=== PATIENT | male | born 1950 | race Caucasian/White ===

== ENCOUNTER 2016-12-16 05:31 | Inpatient (IN) | payer OTHER ==
[2016-12-16 05:43] VITALS: BMI 32.3
[2016-12-16] MEDS ORDERED: Nitroglycerin 2% Ointment Foilpak UD TOP ONE (05:53)
--- NOTE | 2016-12-16 05:59 | ED PDOC ---
HPI: SOB/CHF/COPD Time Seen by Provider: 12/16/16 05:35 Chief Complaint (Nursing): Shortness Of Breath History Per: Patient, Family History/Exam Limitations: no limitations Onset/Duration Of Symptoms: Hrs (8) Current Symptoms Are (Timing): Still Present Current Respiratory Medications: See Home Med List Severity: Moderate Associated Symptoms: Ankle/Leg Swelling. denies: Fever, Chills, Sweating, Chest Pain, Bloody Cough, Productive Cough, Heart Racing, Leg/Calf Pain, Dizziness, Light-headedness, Anxiety, Tingling In Hands Or Face, Musle Spasms In Hands Or Feet Additional History Per: Patient, Family Additional Complaint(s): 66 y/o male with history PR and stent placement, CAD, HTN, borderline DM, brain aneurysm, here accompanied by his son. Patient complains of cough and shortness of breath that began approximately [address]. No fever. No history of CHF or fluid overload. PMD and Cemetery Manager are through [facility]. Past Medical History Vital Signs: Last Vital Signs Temp 98.7 F 12/18/16 12:06 Pulse 85 12/18/16 12:06 Resp 18 12/18/16 12:06 BP 113/70 12/18/16 12:06 Pulse Ox 95 12/18/16 12:06 - Medical History PMH: CAD, Diabetes, HTN Other PMH: Brain Aneurysm - Surgical History Other surgeries: Cardiac Stenting, Aneruysm coil - Family History Family History: States: Unknown Family Hx - Social History Current smoker - smoking cessation education provided: No Alcohol: > 2 Drinks/Day (1 bottle of wine per day) - Home Medications Home Medications: Ambulatory Orders Medication Instructions Recorded Aspirin [Aspirin Chewable] 81 g PO DAILY 12/16/16 Clopidogrel [Plavix] 75 g PO DAILY 12/16/16 Fenofibrate [Tricor] 145 mg PO DAILY 12/16/16 Metoprolol Tartrate [Lopressor] 25 mg PO Q12 12/16/16 metFORMIN [glucOPHAGE] 500 mg PO BID 12/16/16 Atorvastatin [Lipitor] 20 mg PO HS #30 tab 12/18/16 Furosemide [Lasix] 20 mg PO DAILY #30 tab 12/18/16 Lisinopril [Zestril] 2.5 mg PO DAILY #30 tab 12/18/16 - Allergies Allergies/Adverse Reactions: Allergies Allergy/AdvReac Type Severity Reaction Status Date / Time No Known Allergies Allergy Verified 12/16/16 05:43 Review of Systems ROS Statement: Except As Marked, All Systems Reviewed And Found Negative Respiratory: Positive for: Cough, Shortness of Breath Physical Exam - Reviewed Nursing Documentation Reviewed: Yes Vital Signs Reviewed: Yes - Physical Exam Appears: Positive for: Non-toxic, No Acute Distress, Uncomfortable Head Exam: Positive for: ATRAUMATIC, NORMAL INSPECTION, NORMOCEPHALIC Skin: Positive for: Normal Color, Warm, DRY Eye Exam: Positive for: EOMI, Normal appearance, PERRL ENT: Positive for: Normal ENT Inspection Neck: Positive for: Normal, Painless ROM Cardiovascular/Chest: Positive for: Regular Rate, Rhythm Respiratory: Positive for: Accessory Muscle Use, Crackles (throughout ), Respiratory Distress, Other (Tachypnea). Negative for: Rales, Rhonchi, Stridor , Wheezing Gastrointestinal/Abdominal: Positive for: Normal Exam, Bowel Sounds, Soft Back: Positive for: Normal Inspection Extremity: Positive for: Normal ROM, Capillary Refill, Swelling (2+ bilateral lower extremity, pitting). Negative for: Deformity Neurologic/Psych: Positive for: Alert, Oriented - Laboratory Results Result Diagrams: 12/17/16 06:20 12/17/16 06:20 - ECG ECG Rhythm: Positive for: Normal QRS, Normal ST Segment, Sinus Tachycardia (103) . Negative for: ST/T Changes O2 Sat by Pulse Oximetry: 93 Medical Decision Making Medical Decision Making: ImpressionL r/o CHF Plan: - Labs - CXR - EKG - Lasix and Nitro SL Scribe Attestation: Documented by Stella Mei acting as a scribe for Radha Najera MD. Scribe Attestation: All medical record entries made by the Scribe were at my direction and personally dictated by me. I have reviewed the chart and agree that the record accurately reflects my personal performance of the history, physical exam, medical decision making, and the department course for this patient. I have also personally directed, reviewed, and agree with the discharge instructions and disposition. Disposition - Clinical Impression Clinical Impression: CHF (congestive heart failure) - Patient ED Disposition Is Patient to be Admitted: Transfer of Care - Disposition Disposition: Transfer of Care Disposition Time: 07:00 Condition: STABLE Patient Signed Over To: Oneil Zamarripa
[2016-12-16 06:07] LABS: BASO # 0.1 K/uL (0.0-0.2); BASO % 0.5 % (0.0-2.0); EOS # 0.5 K/uL (0.0-0.7); EOS % 3.7 % (0.0-4.0); HEMATOCRIT 38.8 % (35.0-51.0); LYMPH # 2.9 K/uL (1.0-4.3); LYMPH % 21.4 % (20.0-40.0); MEAN CELL VOLUME 89.9 fl (80.0-94.0); MEAN CORPUSCULAR HEMOGLOBIN 28.7 pg (27.0-31.0); MEAN CORPUSCULAR HGB CONC 31.9 g/dL (33.0-37.0); MEAN PLATELET VOLUME 7.9 fl (7.2-11.7); MONO # 1.6 K/uL (0.0-0.8); MONO % 11.8 % (0.0-10.0); NEUT # 8.6 K/uL (1.8-7.0); NEUT % 62.6 % (50.0-75.0); RED CELL DISTRIBUTION WIDTH 13.5 % (11.5-14.5); WHITE BLOOD COUNT 13.7 K/uL (4.8-10.8)
[2016-12-16 06:17] LABS: ALB/GLOB RATIO 1.3 (1.0-2.1); ALKALINE PHOSPHATASE 48 U/L (38-126); ALT/SGPT 41 U/L (21-72); AST/SGOT 36 U/L (17-59); BILIRUBIN,TOTAL 1.1 mg/dl (0.2-1.3); BLOOD UREA NITROGEN 14 mg/dl (9-20); CALCIUM 9.4 mg/dL (8.4-10.2); CARBON DIOXIDE 22 mmol/L (22-30); CHLORIDE 106 mmol/L (98-107); GFR AFRICAN-AMERICAN > 60; GLUCOSE,RANDOM 123 mg/dL (75-110); POTASSIUM 4.3 MMOL/L (3.6-5.0); SODIUM 139 mmol/l (132-148); TOTAL PROTEIN 7.5 G/DL (6.3-8.2)
--- NOTE | 2016-12-16 07:09 | ED PDOC ---
- Laboratory Results Result Diagrams: 12/16/16 06:00 12/16/16 06:00 - ECG O2 Sat by Pulse Oximetry: 96 (RA) Pulse Ox Interpretation: Normal Medical Decision Making Medical Decision Makin:08 Patient signed out to me from Dr. Najera. Labs pending. 08:00 Chest x-ray reviewed by me. 09:[address] Maico Samuels who agrees to admit patient. Disposition Counseled Patient/Family Regarding: Studies Performed - Clinical Impression Clinical Impression: CHF (congestive heart failure) - POA Present On Arrival: None - Disposition Disposition: Hospitalized as Observation Patient Disposition Time: 09:25 Condition: FAIR
[2016-12-16] MEDS ORDERED: Albuterol-Ipratrop 3 mg / 0.5 (3 ml) UD INH STA (07:50)
[2016-12-16] MEDS ORDERED: Albuterol-Ipratrop 3 mg / 0.5 (3 ml) UD ONE (08:32)
--- NOTE | 2016-12-16 10:18 | CP.PCM.HP ---
History of Present Illness - History of Present Illness History of Present Illness: 66 yo male with history of CAD, HTN, DM2, brain aneurysm with recent coronary stent placement a month ago came in complaining of SOB and coughing since yesterday. Patient unable to lie in bed because of coughing and would rather sit down on a chair. Cough was non-productive. Noted also were leg swelling. He denied chest pain, fever or chills. In the ER, patient was given IV Lasix and Duoneb and had some relief from SOB. However coughing remained. Present on Admission - Present on Admission Any Indicators Present on Admission: No History of DVT/PE: No History of Uncontrolled Diabetes: No Urinary Catheter: No Decubitus Ulcer Present: No Review of Systems - Review of Systems All systems: reviewed and no additional remarkable complaints except (aside from those mentioned above, 12 point system review were negative by me) Past Patient History - Tetanus Immunizations Tetanus Immunization: Unknown - Past Medical History & Family History Past Medical History?: Yes Past Family History: Reviewed and not pertinent - Past Social History Smoking Status: Former Smoker (drinks 1 bottle of wine a day) Alcohol: > 2 Drinks/Day (1 bottle of wine per day) Drugs: Denies Home Situation {Lives}: With Family - CARDIAC Hx Cardiac Disorders: Yes Hx Hypercholesterolemia: Yes Hx Hypertension: Yes Hx Peripheral Edema: Yes - PULMONARY Hx Respiratory Disorders: Yes - NEUROLOGICAL Hx Neurological Disorder: Yes Other/Comment: cerebral aneurysm, 2 and 3 yrs ago - HEENT Hx HEENT Problems: No - RENAL Hx Chronic Kidney Disease: No - ENDOCRINE/METABOLIC Hx Diabetes Mellitus Type 2: Yes (borderline diabetic) - HEMATOLOGICAL/ONCOLOGICAL Hx Blood Disorders: No - INTEGUMENTARY Hx Dermatological Problems: No - MUSCULOSKELETAL/RHEUMATOLOGICAL Hx Musculoskeletal Disorders: No - GASTROINTESTINAL Hx Gastrointestinal Disorders: No - GENITOURINARY/GYNECOLOGICAL Hx Genitourinary Disorders: No - PSYCHIATRIC Hx Psychophysiologic Disorder: No Hx Substance Use: No - SURGICAL HISTORY Hx Surgeries: Yes Hx Coronary Stent: Yes Other/Comment: cerebral aneurysm repair, 2 and 3 yrs ago - ANESTHESIA Hx Anesthesia: Yes Hx Anesthesia Reactions: No Meds Allergies/Adverse Reactions: Allergies Allergy/AdvReac Type Severity Reaction Status Date / Time No Known Allergies Allergy Verified 12/16/16 05:43 Physical Exam - Constitutional Appears: No Acute Distress - Head Exam Head Exam: ATRAUMATIC - Eye Exam Eye Exam: absent: Scleral icterus - ENT Exam ENT Exam: Mucous Membranes Moist - Neck Exam Neck exam: Negative for: Meningismus - Respiratory Exam Respiratory Exam: absent: Rhonchi, Wheezes, Respiratory Distress - Cardiovascular Exam Cardiovascular Exam: REGULAR RHYTHM, +S1, +S2 - GI/Abdominal Exam GI & Abdominal Exam: Soft. absent: Tenderness - Rectal Exam Rectal Exam: Deferred - Extremities Exam Extremities exam: Positive for: pedal edema (2+ pedal edema) - Back Exam Back exam: NORMAL INSPECTION - Neurological Exam Neurological exam: Alert, Oriented x3 - Psychiatric Exam Psychiatric exam: Normal Affect - Skin Skin Exam: Dry, Intact Results - Vital Signs Recent Vital Signs: Last Vital Signs Temp 97.6 F 12/16/16 09:53 Pulse 90 12/16/16 09:53 Resp 19 12/16/16 09:53 BP 140/76 12/16/16 09:53 Pulse Ox 98 12/16/16 09:49 - Labs Result Diagrams: 12/16/16 06:00 12/16/16 06:00 Assessment & Plan (1) CHF (congestive heart failure) Status: Suspected Comment: place on observation in telemetry. serial Troponin and EKG. ECHO. cardiology consult with Dr Paez. Lasix 40mg PO daily (2) CAD (coronary artery disease) Status: Chronic Comment: continue ASA, Plavix, Metoprolol and statin. had coronary stent a month ago (1st one 5yrs ago) (3) HTN (hypertension) Status: Chronic Comment: BP stable. continue Metoprolol (4) DM2 (diabetes mellitus, type 2) Status: Chronic Comment: BS relatively controlled. continue Metformin 500mg PO BID. HgA1C, BMP in am (5) DVT prophylaxis Status: Acute Comment: Lovenox 40mg SC daily
--- NOTE | 2016-12-16 10:49 | RAD ---
HISTORY: sob COMPARISON: No prior. FINDINGS: LUNGS: Minor bibasilar atelectasis. PLEURA: No significant pleural effusion identified, no pneumothorax apparent. CARDIOVASCULAR: Heart size is upper limits of normal -borderline enlarged. OSSEOUS STRUCTURES: Mild multilevel degenerative spondylosis of the thoracic spine VISUALIZED UPPER ABDOMEN: Normal. OTHER FINDINGS: None. IMPRESSION: Minor bibasilar atelectasis.
[2016-12-16] MEDS: Albuterol-Ipratrop 3 mg / 0.5 (3 ml) UD INH PRN ×2 (15:07→23:49)
[2016-12-16] MEDS: guaiFENesin DM 200 mg-20 mg/10 ml UD PO PRN (20:28)
[2016-12-17] MEDS: guaiFENesin DM 200 mg-20 mg/10 ml UD PO PRN ×2 (04:07→20:17)
[2016-12-17 07:04] LABS: BLOOD UREA NITROGEN 13 mg/dl (9-20); CALCIUM 9.4 mg/dL (8.4-10.2); CARBON DIOXIDE 24 mmol/L (22-30); CHLORIDE 102 mmol/L (98-107); GFR AFRICAN-AMERICAN > 60; GLUCOSE,RANDOM 113 mg/dL (75-110); POTASSIUM 4.1 MMOL/L (3.6-5.0); SODIUM 137 mmol/l (132-148)
[2016-12-17 07:44] LABS: BASO % 0.3 % (0.0-2.0); EOS # 0.4 K/uL (0.0-0.7); EOS % 3.2 % (0.0-4.0); HEMATOCRIT 37.5 % (35.0-51.0); LYMPH # 2.4 K/uL (1.0-4.3); LYMPH % 19.8 % (20.0-40.0); MEAN CELL VOLUME 89.5 fl (80.0-94.0); MEAN CORPUSCULAR HEMOGLOBIN 29.1 pg (27.0-31.0); MEAN CORPUSCULAR HGB CONC 32.4 g/dL (33.0-37.0); MEAN PLATELET VOLUME 8.7 fl (7.2-11.7); MONO # 1.2 K/uL (0.0-0.8); MONO % 10.1 % (0.0-10.0); NEUT # 8.1 K/uL (1.8-7.0); NEUT % 66.6 % (50.0-75.0); NRBC % 0.2 % (0.0-0.0); RED CELL DISTRIBUTION WIDTH 13.5 % (11.5-14.5); WHITE BLOOD COUNT 12.2 K/uL (4.8-10.8)
[2016-12-17] MEDS: Albuterol-Ipratrop 3 mg / 0.5 (3 ml) UD INH PRN ×3 (08:01→22:24)
[2016-12-17] MEDS: Enoxaparin 40 mg Syringe SC SCH (08:59)
--- NOTE | 2016-12-17 10:07 | CARD ---
APPROVED REPORT EKG Measurement Heart [id number] <Conclusion> Sinus tachycardia Indeterminate axis Pulmonary disease pattern Abnormal ECG
--- NOTE | 2016-12-17 11:08 | CP.PCM.CON ---
History of Present Illness - History of Present Illness History of Present Illness: this 66-year-old man was brought to the emergency room upon development of shortness of breath and coughing spells. There was a vague sense of chest discomfort quite unconnected to any physical activity. This did not radiate down his arm or into his jaw and was not accompanied by any perspiration nausea or vomiting. He has a history of having required a coronary stent approximately 4 years back and again one month back. These interventions were preceded by chest pain which was typical off coronary artery disease. He is an ex-smoker who has a history of diabetes mellitus for which he takes metformin. He also has hypertriglyceridemia and hypertension. He has been on aspirin and Plavix since his coronary stenting which she has taken faithfully. He is also on prolonged. There is no family history of vascular disease. He has no symptoms of congestive cardiac failure.[place] Physical examination shows a middle aged man who is comfortable at bedrest. Telemetry shows a steady sinus rhythm. His blood pressure was 140/70 mmHg. And his heart rate was 64 bpm and regular. His pedal pulses were well felt. His jugular venous pressure was not elevated. There was no edema over his lower extremity. The apex was not palpable. First and second heart sound are normal. There were no rales and there was no gallop rhythm. His electrocardiogram at admission shows sinus rhythm with nonspecific ST changes. There were no changes of acute myocardial ischemia. His electrocardiogram this morning shows QS complexes in V1 and V2 probably related to chest lead placement, there were no ST-T changes of myocardial ischemia. His troponin levels were consistently normal on 3 separate occasions 8 hours apart. The rest of his labs were noted. The patient reports that last night he developed coughing spells and shortness of breath which required him to sit up in a chair and he got relief. IMPRESSION: coronary artery disease with coronary stenting 2 the last one being one month back. Diabetes mellitus, hypertension and dyslipidemia. His electrocardiograms and troponin levels do not indicate recent myocyte injury. But, an episode of orthopnea last night, strongly suggests unstable left ventricular function. During this examination there was no evidence of volume overload. Today's electrocardiogram does not show ongoing ST-T abnormalities indicative of ongoing myocardial ischemia. I have attempted to contact his manager medical writing who will be available tomorrow morning. I intend to observe the patient in the hospital today before letting him go so he can see his manager medical writing tomorrow. Past Patient History - Tetanus Immunizations Tetanus Immunization: Unknown - Past Medical History & Family History Past Medical History?: Yes Past Family History: Reviewed and not pertinent - Past Social History Smoking Status: Former Smoker (drinks 1 bottle of wine a day) Alcohol: > 2 Drinks/Day (1 bottle of wine per day) Drugs: Denies Home Situation {Lives}: With Family - CARDIAC Hx Cardiac Disorders: Yes Hx Hypercholesterolemia: Yes Hx Hypertension: Yes Hx Peripheral Edema: Yes - PULMONARY Hx Respiratory Disorders: Yes - NEUROLOGICAL Hx Neurological Disorder: Yes Other/Comment: cerebral aneurysm, 2 and 3 yrs ago - HEENT Hx HEENT Problems: No - RENAL Hx Chronic Kidney Disease: No - ENDOCRINE/METABOLIC Hx Diabetes Mellitus Type 2: Yes (borderline diabetic) - HEMATOLOGICAL/ONCOLOGICAL Hx Blood Disorders: No - INTEGUMENTARY Hx Dermatological Problems: No - MUSCULOSKELETAL/RHEUMATOLOGICAL Hx Musculoskeletal Disorders: No - GASTROINTESTINAL Hx Gastrointestinal Disorders: No - GENITOURINARY/GYNECOLOGICAL Hx Genitourinary Disorders: No - PSYCHIATRIC Hx Psychophysiologic Disorder: No Hx Substance Use: No - SURGICAL HISTORY Hx Surgeries: Yes Hx Coronary Stent: Yes Other/Comment: cerebral aneurysm repair, 2 and 3 yrs ago - ANESTHESIA Hx Anesthesia: Yes Hx Anesthesia Reactions: No Meds Allergies/Adverse Reactions: Allergies Allergy/AdvReac Type Severity Reaction Status Date / Time No Known Allergies Allergy Verified 12/16/16 05:43 - Medications Medications: Current Medications Albuterol/Ipratropium (Duoneb 3 Mg/0.5 Mg (3 Ml) Ud) 3 ml INH RQ4 PRN PRN Reason: Shortness of Breath Last Admin: 12/17/16 08:01 Dose: 3 ml Aspirin (Aspirin Chewable) 81 mg PO DAILY [facility] Last Admin: 12/17/16 08:58 Dose: 81 mg Atorvastatin Calcium (Lipitor) 20 mg PO HS [facility] Last Admin: 12/16/16 21:26 Dose: 20 mg Clopidogrel Bisulfate (Plavix) 75 mg PO DAILY [facility] Last Admin: 12/17/16 08:58 Dose: 75 mg Enoxaparin Sodium (Lovenox) 40 mg SC DAILY [facility] PRN Reason: Protocol Last Admin: 12/17/16 08:59 Dose: 40 mg Fenofibrate (Tricor) 145 mg PO DAILY [facility] Last Admin: 09/04/17 08:58 Dose: 145 mg Furosemide (Lasix) 40 mg IV DAILY [facility] Last Admin: 12/17/16 10:49 Dose: 40 mg Guaifenesin/Dextromethorphan (Robitussin Dm) 10 ml PO Q4 PRN PRN Reason: Cough Last Admin: 12/17/16 04:07 Dose: 10 ml Lisinopril (Zestril) 2.5 mg PO DAILY [facility] Metformin HCl (Glucophage) 500 mg PO BID [facility] Last Admin: 12/17/16 08:58 Dose: 500 mg Metoprolol Tartrate (Lopressor) 25 mg PO Q12 [facility] Last Admin: 12/17/16 08:58 Dose: 25 mg Results - Vital Signs Recent Vital Signs: Last Vital Signs Temp 98.8 F 12/17/16 08:00 Pulse 90 12/17/16 08:58 Resp 18 12/17/16 08:00 BP 153/66 H 12/17/16 10:49 Pulse Ox 97 12/17/16 08:00 - Labs Result Diagrams: 12/17/16 06:20 12/17/16 06:20 Labs: Laboratory Results - last 24 hr 12/16/16 12/16/16 12/17/16 14:30 22:33 06:20 WBC 12.2 H RBC 4.19 L Hgb 12.2 Hct 37.5 MCV 89.5 MCH 29.1 MCHC 32.4 L RDW 13.5 Plt Count 241 MPV 8.7 Neut % (Auto) 66.6 Lymph % (Auto) 19.8 L [place] % (Auto) 10.1 H Eos % (Auto) 3.2 Baso % (Auto) 0.3 Neut # 8.1 H Lymph # 2.4 [place] # 1.2 H Eos # 0.4 Baso # 0.0 Sodium Potassium Chloride Carbon Dioxide Anion Gap BUN Creatinine Est GFR ( Amer) Est GFR (Non-Af Amer) Random Glucose Calcium Troponin I < 0.0120 < 0.0120 12/17/16 06:20 WBC RBC Hgb Hct MCV MCH MCHC RDW Plt Count MPV Neut % (Auto) Lymph % (Auto) [place] % (Auto) Eos % (Auto) Baso % (Auto) Neut # Lymph # [place] # Eos # Baso # Sodium 137 Potassium 4.1 Chloride 102 Carbon Dioxide 24 Anion Gap 15 BUN 13 Creatinine 1.0 Est GFR ( Amer) > 60 Est GFR (Non-Af Amer) > 60 Random Glucose 113 H Calcium 9.4 Troponin I
--- NOTE | 2016-12-17 15:25 | CP.PCM.PN ---
Subjective - Date & Time of Evaluation Date of Evaluation: 12/17/16 Time of Evaluation: 14:00 - Subjective Subjective: Pt seen and examined. Admitted feeling SOB and coughing when lying in bed. Unable to sleep last night since he had to stay in the chair. Objective - Vital Signs/Intake and Output Vital Signs (last 24 hours): Temp Pulse Resp BP Pulse Ox 98.4 F 91 H 20 124/75 97 12/17/16 12:45 12/17/16 12:45 12/17/16 12:45 12/17/16 12:45 12/17/16 12:45 Intake and Output: 12/17/16 12/17/16 06:59 18:59 Intake Total 300 Balance 300 - Medications Medications: Current Medications Albuterol/Ipratropium (Duoneb 3 Mg/0.5 Mg (3 Ml) Ud) 3 ml INH RQ4 PRN PRN Reason: Shortness of Breath Last Admin: 12/17/16 08:01 Dose: 3 ml Aspirin (Aspirin Chewable) 81 mg PO DAILY [facility] Last Admin: 12/17/16 08:58 Dose: 81 mg Atorvastatin Calcium (Lipitor) 20 mg PO HS [facility] Last Admin: 12/16/16 21:26 Dose: 20 mg Clopidogrel Bisulfate (Plavix) 75 mg PO DAILY [facility] Last Admin: 12/17/16 08:58 Dose: 75 mg Enoxaparin Sodium (Lovenox) 40 mg SC DAILY [facility] PRN Reason: Protocol Last Admin: 12/17/16 08:59 Dose: 40 mg Fenofibrate (Tricor) 145 mg PO DAILY [facility] Last Admin: 12/17/16 08:58 Dose: 145 mg Furosemide (Lasix) 40 mg IV DAILY [facility] Last Admin: 12/17/16 10:49 Dose: 40 mg Guaifenesin/Dextromethorphan (Robitussin Dm) 10 ml PO Q4 PRN PRN Reason: Cough Last Admin: 12/17/16 04:07 Dose: 10 ml Lisinopril (Zestril) 2.5 mg PO DAILY [facility] Metformin HCl (Glucophage) 500 mg PO BID [facility] Last Admin: 12/17/16 08:58 Dose: 500 mg Metoprolol Tartrate (Lopressor) 25 mg PO Q12 [facility] Last Admin: 12/17/16 08:58 Dose: 25 mg - Labs Labs: 12/17/16 06:20 12/17/16 06:20 - Constitutional Appears: No Acute Distress - Head Exam Head Exam: ATRAUMATIC - Eye Exam Eye Exam: absent: Scleral icterus - ENT Exam ENT Exam: Mucous Membranes Moist - Neck Exam Neck Exam: absent: Meningismus - Respiratory Exam Respiratory Exam: absent: Rhonchi, Wheezes, Respiratory Distress - Cardiovascular Exam Cardiovascular Exam: REGULAR RHYTHM, +S1, +S2 - GI/Abdominal Exam GI & Abdominal Exam: Soft. absent: Tenderness - Rectal Exam Rectal Exam: Deferred - Extremities Exam Extremities Exam: Pedal Edema (both legs less edematous than yesterday) - Neurological Exam Neurological Exam: Alert, Oriented x3 - Psychiatric Exam Psychiatric exam: Normal Affect - Skin Skin Exam: Dry, Intact Assessment and Plan (1) CHF (congestive heart failure) Status: Suspected (2) CAD (coronary artery disease) Status: Chronic (3) HTN (hypertension) Status: Chronic (4) DM2 (diabetes mellitus, type 2) Status: Chronic (5) DVT prophylaxis Status: Acute - Assessment and Plan (Free Text) Assessment: 66 yo male with history of CAD, HTN, DM2, brain aneurysm with recent coronary stent placement a month ago came in because of SOB and coughing since yesterday. (1) CHF (congestive heart failure) serial Troponins and EKGs were negative for ischemic changes CXray: borderline cardiomegaly with bibasilar atelectasis ECHO pending cardiology consult with Dr Paez. continue Lasix and Lisinopril (2) CAD (coronary artery disease) continue ASA, Plavix, Metoprolol and statin. (3) HTN (hypertension) BP stable. continue Metoprolol, Lisinopril and Lasix (4) DM2 (diabetes mellitus, type 2) BS controlled. HgA1C: 6.3 continue Metformin 500mg PO BID (5) DVT prophylaxis Lovenox 40mg SC daily
[2016-12-18] MEDS: guaiFENesin DM 200 mg-20 mg/10 ml UD PO PRN ×3 (00:18→08:54)
[2016-12-18 08:04] VITALS: RESP 18
[2016-12-18] MEDS: Enoxaparin 40 mg Syringe SC SCH (08:54)
[2016-12-18 11:29] VITALS: PULSE 85
[2016-12-18 12:06] VITALS: BP 113/70; TEMP 98.7
--- NOTE | 2016-12-18 12:08 | CP.PCM.PN ---
Subjective - Date & Time of Evaluation Date of Evaluation: 12/18/16 Time of Evaluation: 10:00 - Subjective Subjective: Was comfortable overnight Telemetry shows stable sinus rhythm at physiologic rates Vital signs stable Echo shows normal LV wall motion pattern with preserved LV syst function Discussed his case with his doctors at [facility] Pt has an appt to see them on 19 August go home on present Rx Objective - Vital Signs/Intake and Output Vital Signs (last 24 hours): Temp Pulse Resp BP Pulse Ox 98.4 F 85 18 120/74 95 12/18/16 09:00 12/18/16 09:00 12/18/16 09:00 12/18/16 09:00 12/18/16 09:00 Intake and Output: 12/18/16 12/18/16 06:59 18:59 Intake Total 400 Balance 400 - Medications Medications: Current Medications Albuterol/Ipratropium (Duoneb 3 Mg/0.5 Mg (3 Ml) Ud) 3 ml INH RQ4 PRN PRN Reason: Shortness of Breath Last Admin: 12/17/16 22:24 Dose: 3 ml Aspirin (Aspirin Chewable) 81 mg PO DAILY [facility] Last Admin: 12/18/16 08:51 Dose: 81 mg Atorvastatin Calcium (Lipitor) 20 mg PO HS [facility] Last Admin: 12/17/16 21:11 Dose: 20 mg Clopidogrel Bisulfate (Plavix) 75 mg PO DAILY [facility] Last Admin: 12/18/16 08:54 Dose: 75 mg Enoxaparin Sodium (Lovenox) 40 mg SC DAILY [facility] PRN Reason: Protocol Last Admin: 12/18/16 08:54 Dose: 40 mg Fenofibrate (Tricor) 145 mg PO DAILY [facility] Last Admin: 12/18/16 08:54 Dose: 145 mg Furosemide (Lasix) 40 mg IV DAILY [facility] Last Admin: 12/18/16 08:52 Dose: 40 mg Guaifenesin/Dextromethorphan (Robitussin Dm) 10 ml PO Q4 PRN PRN Reason: Cough Last Admin: 12/18/16 08:54 Dose: 10 ml Lisinopril (Zestril) 2.5 mg PO DAILY [facility] Last Admin: 12/18/16 08:54 Dose: 2.5 mg Metformin HCl (Glucophage) 500 mg PO BID [facility] Last Admin: 12/18/16 08:51 Dose: 500 mg Metoprolol Tartrate (Lopressor) 25 mg PO Q12 [facility] Last Admin: 12/18/16 08:53 Dose: 25 mg
--- NOTE | 2016-12-18 12:26 | CP.PCM.DIS ---
Provider - Provider Date of Admission: 12/17/16 19:37 Attending physician: Maico Samuels MD Primary care physician: Dr.Hason Ramírez Consults: cardiology consult Time Spent in preparation of Discharge (in minutes): 20 Hospital Course - Lab Results Lab Results: Most Recent Lab Values WBC 12.2 K/uL (4.8-10.8) H 12/17/16 06:20 RBC 4.19 Mil/uL (4.40-5.90) L 12/17/16 06:20 Hgb 12.2 g/dL (12.0-18.0) 12/17/16 06:20 Hct 37.5 % (35.0-51.0) 12/17/16 06:20 MCV 89.5 fl (80.0-94.0) 12/17/16 06:20 MCH 29.1 pg (27.0-31.0) 12/17/16 06:20 MCHC 32.4 g/dL (33.0-37.0) L 12/17/16 06:20 RDW 13.5 % (11.5-14.5) 12/17/16 06:20 Plt Count 241 K/uL (130-400) 12/17/16 06:20 MPV 8.7 fl (7.2-11.7) 12/17/16 06:20 Neut % (Auto) 66.6 % (50.0-75.0) 12/17/16 06:20 Lymph % (Auto) 19.8 % (20.0-40.0) L 12/17/16 06:20 [place] % (Auto) 10.1 % (0.0-10.0) H 12/17/16 06:20 Eos % (Auto) 3.2 % (0.0-4.0) 12/17/16 06:20 Baso % (Auto) 0.3 % (0.0-2.0) 12/17/16 06:20 Neut # 8.1 K/uL (1.8-7.0) H 12/17/16 06:20 Lymph # 2.4 K/uL (1.0-4.3) 12/17/16 06:20 [place] # 1.2 K/uL (0.0-0.8) H 12/17/16 06:20 Eos # 0.4 K/uL (0.0-0.7) 12/17/16 06:20 Baso # 0.0 K/uL (0.0-0.2) 12/17/16 06:20 Sodium 137 mmol/l (132-148) 12/17/16 06:20 Potassium 4.1 MMOL/L (3.6-5.0) 12/17/16 06:20 Chloride 102 mmol/L (98-107) 12/17/16 06:20 Carbon Dioxide 24 mmol/L (22-30) 12/17/16 06:20 Anion Gap 15 (10-20) 12/17/16 06:20 BUN 13 mg/dl (9-20) 12/17/16 06:20 Creatinine 1.0 mg/dL (0.8-1.5) 12/17/16 06:20 Est GFR ( Amer) > 60 12/17/16 06:20 Est GFR (Non-Af Amer) > 60 12/17/16 06:20 POC Glucose (mg/dL) 96 mg/dL (65-110) 12/16/16 06:06 Random Glucose 113 mg/dL (75-110) H 12/17/16 06:20 Hemoglobin A1c 6.3 % (4.2-6.5) 12/17/16 06:20 Calcium 9.4 mg/dL (8.4-10.2) 12/17/16 06:20 Total Bilirubin 1.1 mg/dl (0.2-1.3) 12/16/16 06:00 AST 36 U/L (17-59) 12/16/16 06:00 ALT 41 U/L (21-72) 12/16/16 06:00 Alkaline Phosphatase 48 U/L (38-126) 12/16/16 06:00 Troponin I < 0.0120 ng/mL (0.00-0.120) 12/16/16 22:33 NT-Pro-B Natriuret Pep 76.2 pg/ml (0-900) 12/16/16 06:00 Total Protein 7.5 G/DL (6.3-8.2) 12/16/16 06:00 Albumin 4.3 g/dL (3.5-5.0) 12/16/16 06:00 Globulin 3.3 gm/dL (2.2-3.9) 12/16/16 06:00 Albumin/Globulin Ratio 1.3 (1.0-2.1) 12/16/16 06:00 - Hospital Course Hospital Course: 66-year-old man with PMH CAD s/p coronary stents x2 last one placed 1 month ago , DM type II, HTN and dyslipidemia was brought to the emergency room upon development of shortness of breath and coughing spells. He has history of coronary stent placements and these interventions were preceded by chest pain which was typical off coronary artery disease. He has been on aspirin and Plavix since his coronary stenting which she has taken faithfully. in ER his EKG showed no ischemic changes and troponin was negative. Physical exam showed no signs of heart failure. Patient was admitted in telemetry for close monitoring and cardiology was consulted His troponin levels were consistently normal on 3 separate occasions 8 hours apart. The rest of his labs were noted as normal Echo was doine and showed well preserved EF and LV function His helicopter dispatcher was contacted by Dr. Morrison and case discussed . Patient to be discharge home and follow up up with his helicopter dispatcher in 2 days . 1. Non cardiac chest pain ACS ruled out 2. CHF (congestive heart failure)-- ruled out ECho showed well preserved EF and LV function cardiology consulted Continue BP control Start Lisinopril low dose and lasix 3. CAD (coronary artery disease)- stable recent stent 1 month ago trop x 3 negative continue ASA, plavix, statin, Metoprolol and lisinopril 4 HTN (hypertension) BP stable. continue Metoprolol, Lisinopril and Lasix 5. DM2 (diabetes mellitus, type 2) BS controlled. HgA1C: 6.3 continue Metformin 500mg PO BID 6. DVT prophylaxis Lovenox 40mg SC daily 7. Leukocytosis most likely reactive Discharge Exam - Head Exam Head Exam: ATRAUMATIC, NORMAL INSPECTION, NORMOCEPHALIC - Eye Exam Eye Exam: EOMI, Normal appearance, PERRL Pupil Exam: NORMAL ACCOMODATION - ENT Exam ENT Exam: Mucous Membranes Moist, Normal Exam - Neck Exam Neck exam: Full Rom, Normal Inspection - Respiratory Exam Respiratory Exam: Clear to PA & Lateral, NORMAL BREATHING PATTERN. absent: Rales, Rhonchi, Wheezes - Cardiovascular Exam Cardiovascular Exam: REGULAR RHYTHM, RRR, +S1, +S2. absent: JVD - GI/Abdominal Exam GI & Abdominal Exam: Normal Bowel Sounds, Soft. absent: Distended, Guarding, Rebound, Tenderness - Rectal Exam Rectal Exam: Deferred - Extremities Exam Extremities exam: normal capillary refill, normal inspection, pedal pulses present - Back Exam Back exam: NORMAL INSPECTION - Neurological Exam Neurological exam: Alert, CN II-XII Intact, Oriented x3, Reflexes Normal - Psychiatric Exam Psychiatric exam: Normal Affect, Normal Mood - Skin Skin Exam: Dry, Intact, Normal Color, Warm Discharge Plan - Discharge Medications Prescriptions: Atorvastatin [Lipitor] 20 mg PO HS #30 tab Furosemide [Lasix] 20 mg PO DAILY #30 tab Lisinopril [Zestril] 2.5 mg PO DAILY #30 tab - Follow Up Plan Condition: FAIR Disposition: HOME/ ROUTINE Instructions: Heart Failure (DC), Hypertension (DC) Referrals: Alfie Morrison MD [Staff Provider] -
[2016-12-19 10:36] VITALS: O2SAT 93
--- NOTE | 2016-12-19 11:33 | CARD ---
APPROVED REPORT EXAM: Two-dimensional and M-mode echocardiogram with Doppler and color Doppler. Other Information Quality : AverageRhythm : NSR INDICATION Congestive Heart Failure 2D DIMENSIONS IVSd1.00 (0.7-1.1cm)LVDd3.88 (3.9-5.9cm) LVOT Diameter1.76 (1.8-2.4cm)PWd0.82 (0.7-1.1cm) IVSs1.17 (0.8-1.2cm)LVDs2.31 (2.5-4.0cm) FS (%) 40.5 %PWs1.38 (0.8-1.2cm) M-Mode DIMENSIONS Left Atrium (MM)3.26 (2.5-4.0cm)IVSd1.21 (0.7-1.1cm) Aortic Root2.62 (2.2-3.7cm)LVDd4.35 (4.0-5.6cm) Aortic Cusp Exc.1.82 (1.5-2.0cm)PWd1.21 (0.7-1.1cm) IVSs1.65 cmFS (%) 51 % LVDs2.12 (2.0-3.8cm)PWs1.71 cm Mitral Valve MV E Lkueeyxa92.9cm/sMV DECEL [id number] A Fspyyndm71.2cm/s MV [id number]/A ratio1.1MVA (PHT)4.69cm2 TDI Lateral E' Peak V8.88cm/sMedial E' Peak V7.01cm/sE/Lateral E'7.9 E/Medial E'10.0 Pulmonary Valve PV Peak Yntrhawk103.6cm/s LEFT VENTRICLE The left ventricle is normal size. There is normal left ventricular wall thickness. The left ventricular function is normal. The left ventricular ejection fraction is 60% There is normal LV segmental wall motion. The left ventricular diastolic function is normal. No left ventricle thrombus noted on this study. There is no ventricular septal defect visualized. There is no left ventricular aneurysm. There is no mass noted in the left ventricle. RIGHT VENTRICLE The right ventricle is normal size. There is normal right ventricular wall thickness. The right ventricular systolic function is normal. ATRIA The left atrium size is normal. The right atrium size is normal. The interatrial septum is intact with no evidence for an atrial septal defect. AORTIC VALVE The aortic valve is normal in structure and function. No aortic regurgitation is present. There is no aortic valvular stenosis. There is no aortic valvular vegetation. MITRAL VALVE The mitral valve is normal in structure and function. There is no evidence of mitral valve prolapse. There is no mitral valve stenosis. There is no mitral valve regurgitation noted. TRICUSPID VALVE The tricuspid valve is normal in structure and function. There is no tricuspid valve regurgitation noted. There is no tricuspid valve prolapse or vegetation. There is no tricuspid valve stenosis. PULMONIC VALVE The pulmonary valve is normal in structure and function. There is no pulmonic valvular regurgitation. There is no pulmonic valvular stenosis. GREAT VESSELS The aortic root is normal in size. The ascending aorta is normal in size. The IVC is normal in size and collapses >50% with inspiration. PERICARDIAL EFFUSION The pericardium appears normal. There is no pleural effusion. <Conclusion> Normal Echocardiogram
== END 2016-12-18 13:26 | disposition home or self-care (01) | DRG 303 ==
LOC: H.ER 05:31 → H.ERHOLD 09:25 → H.TEL 10:16 → OBSVTOIN 12-17 19:37
DX: I25.10 Atherosclerotic heart disease of native coronary artery without angina pectoris (principal); J44.9 Chronic obstructive pulmonary disease, unspecified; I10 Essential (primary) hypertension; E11.9 Type 2 diabetes mellitus without complications; D72.829 Elevated white blood cell count, unspecified; R07.89 Other chest pain; E78.1 Pure hyperglyceridemia; E78.5 Hyperlipidemia, unspecified; E78.00 Pure hypercholesterolemia, unspecified; I25.2 Old myocardial infarction; Z95.5 Presence of coronary angioplasty implant and graft; Z87.891 Personal history of nicotine dependence

== ENCOUNTER 2018-02-03 22:05 | Inpatient (IN) | payer OTHER ==
[2018-02-03 22:05] VITALS: BMI 32.3
[2018-02-03 22:17] VITALS: O2SAT 93
[2018-02-03] MEDS ORDERED: Albuterol-Ipratrop 3 mg / 0.5 (3 ml) UD INH STA (22:25)
[2018-02-03] MEDS ORDERED: Albuterol-Ipratrop 3 mg / 0.5 (3 ml) UD ONE (22:50)
--- NOTE | 2018-02-03 22:52 | ED PDOC ---
HPI: SOB/CHF/COPD Time Seen by Provider: 02/03/18 22:17 Chief Complaint (Nursing): Shortness Of Breath Chief Complaint (Provider): SOB History Per: Patient, Family History/Exam Limitations: no limitations Additional Complaint(s): Pt reports SOB X 1 day, associated with nonproductive cough and chest tightness. Denies fever, chest pain, palpitations. Past Medical History Reviewed: Nursing Documentation, Vital Signs Vital Signs: Last Vital Signs Temp 98.8 F 02/03/18 22:12 Pulse 98 H 02/03/18 22:12 Resp 24 02/03/18 22:12 BP 162/85 H 02/03/18 22:12 Pulse Ox 93 L 02/03/18 22:12 - Medical History PMH: CAD, Diabetes, HTN, Hypercholesterolemia, Peripheral Edema Denies: Chronic Kidney Disease - Surgical History Surgical History: Coronary Stent - Family History Family History: States: Unknown Family Hx - Home Medications Home Medications: Ambulatory Orders Medication Instructions Recorded Aspirin [Aspirin Chewable] 81 g PO DAILY 12/16/16 Clopidogrel [Plavix] 75 g PO DAILY 12/16/16 Fenofibrate [Tricor] 145 mg PO DAILY 12/16/16 Metoprolol Tartrate [Lopressor] 25 mg PO Q12 12/16/16 metFORMIN [glucOPHAGE] 500 mg PO BID 12/16/16 Atorvastatin [Lipitor] 20 mg PO HS #30 tab 12/18/16 Furosemide [Lasix] 20 mg PO DAILY #30 tab 12/18/16 Lisinopril [Zestril] 2.5 mg PO DAILY #30 tab 12/18/16 - Allergies Allergies/Adverse Reactions: Allergies Allergy/AdvReac Type Severity Reaction Status Date / Time No Known Allergies Allergy Verified 12/16/16 05:43 Review of Systems Constitutional: Negative for: Fever, Chills Cardiovascular: Negative for: Chest Pain, Palpitations Respiratory: Positive for: Cough, Shortness of Breath, Wheezing. Negative for: Hemoptysis, Pleuritic Pain, Sputum Gastrointestinal: Negative for: Nausea, Vomiting, Abdominal Pain Skin: Negative for: Rash, Lesions Neurological: Negative for: Weakness, Numbness, Headache Physical Exam - Reviewed Nursing Documentation Reviewed: Yes Vital Signs Reviewed: Yes - Physical Exam Appears: Positive for: In Acute Distress (Mild respiratory) Skin: Positive for: Normal Color, Warm, Dry Eye Exam: Positive for: Normal appearance, EOMI, PERRL Cardiovascular/Chest: Positive for: Regular Rate, Rhythm Respiratory: Positive for: Wheezing, Respiratory Distress (Mild). Negative for: Decreased Breath Sounds, Accessory Muscle Use, Stridor Extremity: Positive for: Normal ROM Neurologic/Psych: Positive for: Alert, Oriented - Laboratory Results Result Diagrams: 02/03/18 22:48 02/03/18 22:48 - ECG O2 Sat by Pulse Oximetry: 93 Medical Decision Making Medical Decision Makin yo male with SOB, cough and wheezing. - labs - EKG - CXR - Albuterol/atrovent nebs - Solumedrol - Rocephin - Zithromax Disposition - Clinical Impression Clinical Impression: Pneumonia - Patient ED Disposition Is Patient to be Admitted: Yes - Disposition Disposition Time: 11:12 Condition: STABLE - Pt Status Changed To: Hospital Disposition Of: Inpatient - Admit Certification Admit to Inpatient:: After my assessment, the patient will require hospitalization for at least two midnights. This is because of the severity of symptoms shown, intensity of services needed, and/or the medical risk in this patient being treated as an outpatient. - POA Present On Arrival: None
[2018-02-03 23:04] LABS: ALB/GLOB RATIO 1.1 (1.0-2.1); ALBUMIN 3.8 g/dL (3.5-5.0); ALT/SGPT 40 U/L (21-72); AST/SGOT 37 U/L (17-59); BLOOD UREA NITROGEN 10 mg/dl (9-20); CALCIUM 9.2 mg/dL (8.4-10.2); GFR NON-AFRICAN AMERICAN > 60
[2018-02-03 23:04] LABS: VENOUS BLOOD GAS BASE EXCESS 0.3 mmol/L (0.0-2.0); VENOUS BLOOD GAS PCO2 42 mmHg (40-60); VENOUS BLOOD GAS PO2 67 mm/Hg (30-55); VENOUS BLOOD PH 7.39 (7.32-7.43)
[2018-02-03] MEDS ORDERED: Azithromycin 500 MG in Sodium Chloride 0.9% 250 ML IV STA (23:04)
[2018-02-03 23:58] LABS: PROTHROMBIN TIME 11.3 Seconds (9.8-13.1)
[2018-02-04] LABS: PARTIAL THROMBOPLASTIN TIME 22.3 Seconds (25.6-37.1)
[2018-02-04] MEDS ORDERED: Albuterol-Ipratrop 3 mg / 0.5 (3 ml) UD INH STA
[2018-02-04 00:02] LABS: BASO # 0.1 K/uL (0.0-0.2); BASO % 0.6 % (0.0-2.0); EOS # 0.4 K/uL (0.0-0.7); EOS % 2.9 % (0.0-4.0); HEMOGLOBIN 12.8 g/dL (12.0-18.0); LYMPH # 2.4 K/uL (1.0-4.3); LYMPH % 18.4 % (20.0-40.0); MEAN CELL VOLUME 89.1 fl (80.0-94.0); MEAN CORPUSCULAR HEMOGLOBIN 29.1 pg (27.0-31.0); MEAN CORPUSCULAR HGB CONC 32.6 g/dL (33.0-37.0); MEAN PLATELET VOLUME 7.6 fl (7.2-11.7); MONO # 1.3 K/uL (0.0-0.8); MONO % 10.1 % (0.0-10.0); RBC 4.4 Mil/uL (4.40-5.90); RED CELL DISTRIBUTION WIDTH 14.9 % (11.5-14.5); WHITE BLOOD COUNT 13.2 K/uL (4.8-10.8)
[2018-02-04] MEDS ORDERED: Azithromycin 500 MG IV IVPB ONE (00:21)
[2018-02-04] MEDS ORDERED: cefTRIAXone (Rocephin) 1 gm Inj ONE (00:21)
[2018-02-04] MEDS ORDERED: Albuterol-Ipratrop 3 mg / 0.5 (3 ml) UD ONE (00:22)
[2018-02-04 00:38] VITALS: RESP 22
[2018-02-04 00:43] VITALS: BP 138/88; PULSE 72; TEMP 99.8
[2018-02-04 01:18] LABS: SQUAMOUS EPITHIAL < 1 /hpf (0-5); URINE BILIRUBIN NEGATIVE (NEGATIVE); URINE BLOOD NEGATIVE (NEGATIVE); URINE CLARITY CLEAR (Clear); URINE COLOR YELLOW (YELLOW); URINE GLUCOSE (UA) NEG (Normal); URINE LEUKOCYTE ESTERASE NEG Leu/uL (Negative); URINE PROTEIN NEGATIVE (NEGATIVE); URINE UROBILINOGEN 0.2-1.0 mg/dL (0.2-1.0)
--- NOTE | 2018-02-04 06:49 | CARD ---
APPROVED REPORT Date of service: 02/03/2018 EKG Measurement Heart [id number] <Conclusion> Sinus tachycardia Low voltage QRS Cannot rule out Anterior infarct, age undetermined Abnormal ECG
--- NOTE | 2018-02-04 09:56 | RAD ---
Date of service: 02/03/2018 HISTORY: SOB COMPARISON: 12/16/2016 FINDINGS: LUNGS: The lungs are well inflated and clear. PLEURA: No pleural effusions or pneumothorax. CARDIOVASCULAR: The heart is normal in size. Atherosclerotic aortic arch calcifications are present. OSSEOUS STRUCTURES: Within normal limits for the patient's age. VISUALIZED UPPER ABDOMEN: Normal. OTHER FINDINGS: None. IMPRESSION: No active pulmonary disease.
[2018-02-04] MEDS ORDERED: Albuterol-Ipratrop 3 mg / 0.5 (3 ml) UD INH PRN (11:44)
--- NOTE | 2018-02-04 11:45 | CP.PCM.HP ---
History of Present Illness - History of Present Illness History of Present Illness: 68 yo male patient with PMH of CAD s/p cardiac stent x2, Diabetes, HTN, Hypercholesterolemia and cerebral aneurysm presented to ED SOB X 1 day, associated with nonproductive cough and chest tightness. Denies fever, chest pain, palpitations. states good appetite, no urinary symptoms. Otherwise denies any other complaints. PMH: CAD, Diabetes, HTN, Hypercholesterolemia, Peripheral Edema PSH: cardiac stent x2, cerebral aneurysm FH: denies Meds: as bellow NKDA SH: denies tobacco or ilict drugs use, reports etoh socially. Present on Admission - Present on Admission Any Indicators Present on Admission: No Review of Systems - Review of Systems All systems: reviewed and no additional remarkable complaints except (HPI) Past Patient History - Tetanus Immunizations Tetanus Immunization: Unknown - Past Medical History & Family History Past Medical History?: Yes - Past Social History Smoking Status: Former Smoker - CARDIAC Hx Cardiac Disorders: No - PULMONARY Hx Respiratory Disorders: Yes - NEUROLOGICAL Hx Neurological Disorder: Yes Other/Comment: cerebral aneurysm, 2 and 3 yrs ago - HEENT Hx HEENT Problems: No - RENAL Hx Chronic Kidney Disease: No - ENDOCRINE/METABOLIC Hx Diabetes Mellitus Type 2: Yes (borderline diabetic) - HEMATOLOGICAL/ONCOLOGICAL Hx Blood Disorders: No - INTEGUMENTARY Hx Dermatological Problems: No - MUSCULOSKELETAL/RHEUMATOLOGICAL Hx Musculoskeletal Disorders: No - GASTROINTESTINAL Hx Gastrointestinal Disorders: No - GENITOURINARY/GYNECOLOGICAL Hx Genitourinary Disorders: No - PSYCHIATRIC Hx Psychophysiologic Disorder: No Hx Substance Use: No - SURGICAL HISTORY Hx Coronary Stent: Yes - ANESTHESIA Hx Anesthesia: Yes Hx Anesthesia Reactions: No Meds Allergies/Adverse Reactions: Allergies Allergy/AdvReac Type Severity Reaction Status Date / Time No Known Allergies Allergy Verified 12/16/16 05:43 Physical Exam - Constitutional Appears: No Acute Distress - Head Exam Head Exam: NORMAL INSPECTION - Eye Exam Eye Exam: EOMI, PERRL - Respiratory Exam Respiratory Exam: Decreased Breath Sounds, Wheezes. absent: Rales - Cardiovascular Exam Cardiovascular Exam: REGULAR RHYTHM, +S1, +S2 - GI/Abdominal Exam GI & Abdominal Exam: Soft. absent: Distended, Tenderness - Extremities Exam Extremities exam: Negative for: calf tenderness, pedal edema - Neurological Exam Neurological exam: Alert, CN II-XII Intact, Oriented x3 - Skin Skin Exam: Dry, Warm Results - Vital Signs Recent Vital Signs: Last Vital Signs Temp 99.8 F H 02/04/18 00:41 Pulse 72 02/04/18 00:41 Resp 22 02/04/18 00:41 BP 138/88 02/04/18 00:41 Pulse Ox 93 L 02/03/18 22:59 - Labs Result Diagrams: 02/03/18 22:48 02/03/18 22:48 Labs: Laboratory Results - last 24 hr 02/03/18 02/03/18 02/03/18 22:48 22:48 22:48 WBC 13.2 H RBC 4.40 Hgb 12.8 Hct 39.2 MCV 89.1 MCH 29.1 MCHC 32.6 L RDW 14.9 H Plt Count 255 MPV 7.6 Neut % (Auto) 68.0 Lymph % (Auto) 18.4 L [place] % (Auto) 10.1 H Eos % (Auto) 2.9 Baso % (Auto) 0.6 Neut # (Auto) 9.0 H Lymph # (Auto) 2.4 Dawson # (Auto) 1.3 H Eos # (Auto) 0.4 Baso # (Auto) 0.1 PT INR APTT pO2 VBG pH VBG pCO2 VBG HCO3 VBG Total CO2 VBG O2 Sat (Calc) VBG Base Excess VBG Potassium Glucose Lactate FiO2 Sodium 137 Potassium 4.2 Chloride 105 Carbon Dioxide 26 Anion Gap 10 BUN 10 Creatinine 0.7 L Est GFR ( Amer) > 60 Est GFR (Non-Af Amer) > 60 POC Glucose (mg/dL) Random Glucose 110 Calcium 9.2 Total Bilirubin 0.5 AST 37 ALT 40 Alkaline Phosphatase 47 Total Protein 7.4 Albumin 3.8 Globulin 3.6 Albumin/Globulin Ratio 1.1 Venous Blood Potassium Urine Color Urine Clarity Urine pH Ur Specific [place] Urine Protein Urine Glucose (UA) Urine Ketones Urine Blood Urine Nitrate Urine Bilirubin Urine Urobilinogen Ur Leukocyte Esterase Urine RBC (Auto) Urine Microscopic WBC Ur Squamous Epith Cells Influenza Typ A,B (EIA) Negative for flu a/b 02/03/18 02/03/18 02/04/18 23:01 23:45 00:16 WBC RBC Hgb Hct MCV MCH MCHC RDW Plt Count MPV Neut % (Auto) Lymph % (Auto) [place] % (Auto) Eos % (Auto) Baso % (Auto) Neut # (Auto) Lymph # (Auto) Dawson # (Auto) Eos # (Auto) Baso # (Auto) PT 11.3 INR 1.0 APTT 22.3 L pO2 67 H VBG pH 7.39 VBG pCO2 42 VBG HCO3 25.0 VBG Total CO2 26.7 VBG O2 Sat (Calc) 95.5 H VBG Base Excess 0.3 VBG Potassium 4.0 Glucose 110 Lactate 1.0 FiO2 21.0 Sodium 134.0 Potassium Chloride 104.0 Carbon Dioxide Anion Gap BUN Creatinine Est GFR ( Amer) Est GFR (Non-Af Amer) POC Glucose (mg/dL) 120 H Random Glucose Calcium Total Bilirubin AST ALT Alkaline Phosphatase Total Protein Albumin Globulin Albumin/Globulin Ratio Venous Blood Potassium 4.0 Urine Color Urine Clarity Urine pH Ur Specific [place] Urine Protein Urine Glucose (UA) Urine Ketones Urine Blood Urine Nitrate Urine Bilirubin Urine Urobilinogen Ur Leukocyte Esterase Urine RBC (Auto) Urine Microscopic WBC Ur Squamous Epith Cells Influenza Typ A,B (EIA) 02/04/18 01:06 WBC RBC Hgb Hct MCV MCH MCHC RDW Plt Count MPV Neut % (Auto) Lymph % (Auto) [place] % (Auto) Eos % (Auto) Baso % (Auto) Neut # (Auto) Lymph # (Auto) [place] # (Auto) Eos # (Auto) Baso # (Auto) PT INR APTT pO2 VBG pH VBG pCO2 VBG HCO3 VBG Total CO2 VBG O2 Sat (Calc) VBG Base Excess VBG Potassium Glucose Lactate FiO2 Sodium Potassium Chloride Carbon Dioxide Anion Gap BUN Creatinine Est GFR ( Amer) Est GFR (Non-Af Amer) POC Glucose (mg/dL) Random Glucose Calcium Total Bilirubin AST ALT Alkaline Phosphatase Total Protein Albumin Globulin Albumin/Globulin Ratio Venous Blood Potassium Urine Color Yellow Urine Clarity Clear Urine pH 6.0 Ur Specific [place] 1.018 Urine Protein Negative Urine Glucose (UA) Neg Urine Ketones Negative Urine Blood Negative Urine Nitrate Negative Urine Bilirubin Negative Urine Urobilinogen 0.2-1.0 Ur Leukocyte Esterase Neg Urine RBC (Auto) 3 Urine Microscopic WBC 4 Ur Squamous Epith Cells < 1 Influenza Typ A,B (EIA) Assessment & Plan - Assessment and Plan (Free Text) Assessment: 68 yo male admitted with SOB, cough and wheezing r/o COPD Plan: - VSS, afebrile, no leukocytosis - CXR negative for acute lung disease - starts duonebs - azithromycin IV - resume home medications - /f/u labs in am - rest of plan as ordered Case seen and examined with Dr Irving
--- NOTE | 2018-02-04 18:11 | CP.PCM.PCO ---
Against Medical Advice - AMA Patient Left Against Medical Advice: The patient declines admission to the hospital and wishes to leave the hospital. This action is against my medical advice. This decision was made with informed refusal. The patient was told that admission to the hospital is necessary. Explanation of the reasons why were discussed. The risks of leaving were explained to the patient and include, but are not limited to, worsening of known or currently unknown conditions, permanent disability and from undiagnosed or untreated conditions. The patient has the capacity to make this informed decision and understands my explanation of the current medical problem and risks of leaving. The patient voluntarily accepts these risks and signed an AMA form documenting our conversation. The patient was given the opportunity to ask questions and reconsider. The patient was encouraged to return to the Emergency Department at any time for further care. Assessment/Plan - Assessment and Plan (Free Text) Assessment: Patient admitted due to possible COPD, patient decided to go home and sign AMA form, risks all explained to the patient including sepsis, respiratory distress even . ER precautions reviewed with pt
[2018-02-05] MEDS ORDERED: Enoxaparin 40 mg Syringe SC SCH (09:00)
[2018-02-05] MEDS ORDERED: Azithromycin 500 MG in Sodium Chloride 0.9% 250 ML IVPB SCH (09:00)
== END 2018-02-04 13:35 | disposition left against medical advice (07) | DRG 204 ==
LOC: H.ER 22:05 → H.ERHOLD 23:59
PROVIDERS: ADMIT Family Medicine; ATTEND Family Medicine
DX: R06.02 Shortness of breath (principal); I25.10 Atherosclerotic heart disease of native coronary artery without angina pectoris; Z95.5 Presence of coronary angioplasty implant and graft; E11.9 Type 2 diabetes mellitus without complications; I10 Essential (primary) hypertension; E78.00 Pure hypercholesterolemia, unspecified; Z87.891 Personal history of nicotine dependence; R05 Cough; R06.2 Wheezing